=== PATIENT | female | born 1985 | race Two or more races ===

== ENCOUNTER 2022-09-18 03:02 | Emergency (ER) | payer MEDICAID, OTHER ==
[~2022-09-18] VITALS: Ht 165.1 cm; Wt 78.2 kg
[2022-09-18 03:20] VITALS: BP 143/106
[2022-09-18] MEDS ORDERED: KETOROLAC TROMETH 30 MG/ML 1ML VIAL IM ONE (03:45)
[2022-09-18] MEDS ORDERED: LIDOCAINE 1% HCL (LOCAL ANESTH.) INJ 20ML MDV IJ ONE (04:45)
[2022-09-18] MEDS ORDERED: IBUP-1456 PO (05:20)
== END 2022-09-18 06:21 | disposition home or self-care (01) ==
LOC: ER 03:04
DX: S01.81XA Laceration without foreign body of other part of head, initial encounter (principal); S20.319A Abrasion of unspecified front wall of thorax, initial encounter; I10 Essential (primary) hypertension; Z88.2 Allergy status to sulfonamides; Z79.1 Long term (current) use of non-steroidal anti-inflammatories (NSAID); X99.8XXA Assault by other sharp object, initial encounter; Y93.89 Activity, other specified; Y92.89 Other specified places as the place of occurrence of the external cause; Y99.8 Other external cause status
CPT/HCPCS: 12013; 70450; 70486; 96372; 99285; J1885; J2001